=== PATIENT | female | born 1945 | race Caucasian/White ===

== ENCOUNTER 2021-03-29 15:32 | Inpatient (IN) | payer MEDICARE, OTHER ==
[2021-03-29] MEDS ORDERED: Fentanyl 100 MCG/2 ML VIAL ONE (15:35)
[2021-03-29] MEDS ORDERED: Norepinephrine 8 MG/0.9% NS 250 ML ONE (15:40)
[2021-03-29 15:52] LABS: Actual Bicarbonate (HCO3a) 14.5 mEq/L (22-28); Analyzer IN Cardio ER; Base Excess (BEa) -15.8 mEq/L (-2.0 to +3.0); CO2 Tension 55.2 mmHg (35.0-45.0); Calcium, Ionized (arterial) 1.12 mmol/L (1.12-1.30); Carboxyhemoglobin (COHb) 0.3 gm% (0.0-3.0); Hemoglobin (Hb) 10.5 g/dL (12.0-16.0); Potassium - ABG Lab 3.49 mmol/L (3.70-5.30)
[2021-03-29 15:53] LABS: O2 Tension (PaO2), arterial 31.3 mmHg (> 70.0); pH, Arterial 7.04 (7.35-7.45)
[2021-03-29] MEDS ORDERED: DOPamine 400 MG/D5W 250 ML 250 ML ONE (16:01)
== END 2021-03-29 16:24 | disposition expired | DRG 208 ==
LOC: ERS 15:32 → CCU 16:08
PROVIDERS: ADMIT Family Medicine; ATTEND Family Medicine
PROC: 5A1935Z Respiratory Ventilation, Less than 24 Consecutive Hours (ICD-10-PCS; principal; 2021-03-29)
PROC: 0BH17EZ Insertion of Endotracheal Airway into Trachea, Via Natural or Artificial Opening (ICD-10-PCS; 2021-03-29)
PROC: 05HM33Z Insertion of Infusion Device into Right Internal Jugular Vein, Percutaneous Approach (ICD-10-PCS; 2021-03-29)
PROC: 3E033XZ Introduction of Vasopressor into Peripheral Vein, Percutaneous Approach (ICD-10-PCS; 2021-03-29)
DX: U07.1 COVID-19 (principal); J12.82 Pneumonia due to coronavirus disease 2019; J96.01 Acute respiratory failure with hypoxia; N17.9 Acute kidney failure, unspecified; I24.8 Other forms of acute ischemic heart disease; I95.9 Hypotension, unspecified; I46.8 Cardiac arrest due to other underlying condition; K80.70 Calculus of gallbladder and bile duct without cholecystitis without obstruction; E27.8 Other specified disorders of adrenal gland; D64.9 Anemia, unspecified
CPT/HCPCS: 71045; 82805; 94002; J1265; J3010